=== PATIENT | male | born 1950 | race African-American/Black ===

== ENCOUNTER → 2017-05-07 | Outpatient (CLI) | payer OTHER | END | disposition home or self-care (01) | LOC: C.PATHSPEC 15:55 | PROVIDERS: ATTEND Urology | DX: R97.20 Elevated prostate specific antigen [PSA] (principal); N41.4 Granulomatous prostatitis ==

== ENCOUNTER 2018-06-01 05:37 | Inpatient (IN) ==
--- NOTE | 2018-05-27 08:31 | Anesthesiology Consultation ---
Date of Service May 27, 2018 Assessment & Plan (1) Encounter for pre-operative examination: Chart Review Chart Review: Acceptable Risk for Surgery and Patient NOT seen in Pre Admission Testing History Surgery Operation Date: 06/01/18 07:30 Proposed Procedures p Right Robotic Assisted Thoracoscopic Surgery, Right Upper Lobectomy with Chest Wall Resection, Possible Sleeve Resection and Mediastinal Lymphadenectomy - Norman Gonzales MD, FACS Height/Weight Height: 6 ft Weight: 65.317 kg Allergies Allergy/AdvReac Type Severity Reaction Status Date / Time No Known Allergies Allergy Verified 05/26/18 15:43 Medications Home Medications Medication Instructions Recorded Confirmed Last Taken aspirin [Aspirin Low Dose] 81 mg PO QPM 05/05/18 05/26/18 05/18/18 finasteride 5 mg PO QPM 05/05/18 05/26/18 05/18/18 levalbuterol tartrate [Xopenex HFA] 2 inh INHALATION Q6H 05/05/18 05/26/18 Unknown lisinopril 20 mg PO QPM 05/05/18 05/26/18 05/18/18 tamsulosin 2 cap PO HS 05/05/18 05/26/18 05/19/18 montelukast 10 mg PO DAILY 05/26/18 05/26/18 Unknown Past Medical History Medical History Allergic rhinitis Cancer LUNG CANCER Chronic pain GERD (gastroesophageal reflux disease) Hyperlipemia Hypertension Malignant neoplasm RUL BRONCHUS SCC Past Surgical History Surgical History H/O kidney removal (Acute) DONATED TO SISTER (SIDE NOTE NOTED) History of bronchoscopy EBUS WITH BIOPSIES= 05/20/18= GRADE VIEW 2, MAC 3 (SEE ANESTHESIA RECORD FOR ETT DETAILS) Social History Smoking Status: Unknown if ever smoked Testing Electrocardiogram Date: 05/12/18 Findings: + NSR @ (87) Chest X-Ray Date: 05/20/18 Atherosclerosis of the aortic arch. Complete opacification of the right upper lobe at the site of the known mass. No pneumothorax or pleural effusion. Laboratory Results 05/10/18 WBC 8.75 H/H 11.4/36.2 PLATELETS 363 SODIUM 141 POTASSIUM 4.6 CHLORIDE 101 CO2 26 BUN 15 CREATININE 1.01 GLUCOSE 78
[2018-06-01] MEDS ORDERED: LR 15ML/HR IV SCH (06:00)
[2018-06-01] MEDS ORDERED: PHENYLEPHRINE HCL 10 MG/ML VIAL ONE ×3 (06:46→11:57)
[2018-06-01] MEDS ORDERED: ONDANSETRON INJ 2 MG/ML 2 ML VIAL ONE (06:46)
[2018-06-01] MEDS ORDERED: ROCURONIUM BROMIDE 10 MG/ML 5 ML VIAL ONE ×7 (06:46→11:34)
[2018-06-01] MEDS ORDERED: PROPOFOL IV EMULSION 10 MG/ML 20 ML VIAL IV ONE ×2 (06:46→16:30)
[2018-06-01] MEDS ORDERED: LIDOCAINE HCL 2% 2 ML VIAL/AMP(20MG/ML) INFIL ONE (06:46)
[2018-06-01] MEDS ORDERED: DEXAMETHASONE SOD INJ 4 MG/ML VIAL ONE (06:46)
[2018-06-01] MEDS ORDERED: fentaNYL citrate 100 MCG/2 ML VIAL ONE (06:46)
[2018-06-01] MEDS ORDERED: ALBUTEROL HFA INHALER 8.5 GM ONE (06:46)
[2018-06-01] MEDS ORDERED: MIDAZOLAM HCL 1 MG/ML 2ML VIAL ONE ×2 (06:46→16:19)
[2018-06-01] MEDS ORDERED: SODIUM CHLORIDE 0.9% PF 50 ML VIAL ONE (06:59)
[2018-06-01] MEDS ORDERED: BUPIVACAINE LIPOSOME 1.3% 266 MG/20 ML VIAL ONE (07:00)
[2018-06-01] MEDS ORDERED: BUPIVACAINE 0.5 % 5 MG/1 ML MPF 30ML VIAL ONE (07:00)
--- NOTE | 2018-06-01 07:04 | History & Physical Bridge Note ---
Date of Service June 01, 2018 History & Physical Bridge Note I have examined the patient, reviewed the History & Physical and in the interval since the performance of the History & Physical I have noted the following changes of clinical significance: no changes noted
[2018-06-01] MEDS ORDERED: HYDROmorphone INJ 2 MG/ML SYR/VIAL ONE (08:25)
[2018-06-01] MEDS ORDERED: CEFAZOLIN 250 MG/ML 1 GM VIAL ONE (08:25)
[2018-06-01] MEDS ORDERED: fentaNYL citrate 100 MCG/2 ML VIAL IV PRN ×2 (08:45→16:16)
[2018-06-01] MEDS ORDERED: ATROPINE SULFATE 0.1 MG/ML 10ML SYR IV PRN (08:45)
[2018-06-01] MEDS ORDERED: HYDROmorphone INJ 1 MG/ML SYRINGE IV PRN (08:45)
[2018-06-01] MEDS ORDERED: ePHEDrine sulfate 50 MG/ML AMP IV PRN (08:45)
[2018-06-01] MEDS ORDERED: CEFAZOLIN 1000MG 1,000 MG/7.5 ML SYR IV ONE (08:50)
[2018-06-01] MEDS ORDERED: ALBUMIN HUMAN 5% 12.5 GM/250 ML VIAL IV ONE (09:31)
[2018-06-01] MEDS ORDERED: SURGICEL ABSORB HEMOSTAT 2IN X 14IN TOP ONE (11:25)
[2018-06-01] MEDS ORDERED: CEFAZOLIN 1000MG 1,000 MG/7.5 ML SYR IV STA (13:42)
[2018-06-01 13:56] LABS: iSTAT Creatinine 0.9 mg/dl (0.6-1.3); iSTAT Hemoglobin 8.8 g/dl (14.0-18.0); iSTAT Ionized Calcium 1.21 mmol/l (1.12-1.32); iSTAT Potassium 4.8 mEq/L (3.3-5.0)
[2018-06-01] MEDS ORDERED: TISSEEL FIBRIN SEALANT 10ML TOP ONE (14:47)
[2018-06-01] MEDS ORDERED: GLYCOPYRROLATE 0.2 MG/ML VIAL ONE (14:55)
[2018-06-01] MEDS ORDERED: NEOSTIGMINE METHYLSULFATE 5 MG/5 ML SYR ONE (14:55)
--- NOTE | 2018-06-01 15:04 | Post Operative Brief Note ---
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 Madison RN, without difficulty, balderas demonstrates clear yellow urine. Output measured and recorded by anesthesia.)
[2018-06-01] MEDS ORDERED: METOCLOPRAMIDE HCL INJ 5 MG/ML 2 ML VIAL IV ONE (15:40)
[2018-06-01] MEDS ORDERED: MIDAZOLAM HCL 1 MG/ML 2ML VIAL IV PRN (16:16)
[2018-06-01] MEDS ORDERED: ONDANSETRON INJ 2 MG/ML 2 ML VIAL IV PRN (16:42)
[2018-06-01] MEDS ORDERED: D5W AND 1/2NSS 1,000 ML IV SCH (16:42)
[2018-06-01] MEDS ORDERED: OXYCODONE HCL IR 5 MG TAB (IMMEDIATE RELEASE) PO PRN (16:42)
[2018-06-01] MEDS ORDERED: MoRPHine SULFATE 2 MG/ML CARP IV PRN (16:42)
--- NOTE | 2018-06-01 16:44 | XRay Report ---
XR chest 1V portable HISTORY: right pneumonectomy COMPARISON: Chest 05/20/2018. FINDINGS: The endotracheal tube terminates 7 cm from the bishop. This could be advanced by 3 to 4 cm. There is a gas-filled mildly expanded right hemithorax due to the recent pneumonectomy. A right eigh th rib fracture. This favors post thoracotomy changes. The heart is normal in size. The left lung is essentially clear. Right chest wall subcutaneous emphysema likely due to the postoperative change. Th ere is mild left mediastinal shift. The right hemithorax is hyperexpanded. IMPRESSION: A gas-filled mildly expanded right hemithorax status post pneumonectomy. This results in mild left me diastinal shift. Clinical correlation and follow-up recommended to exclude the possibility of develop ing tension within the right hemithorax. Endotracheal tube terminates 7 cm from the bishop. This find ing was called/faxed to the patient's nurse following dictation. Electronically signed by: Aamir Odell M.D. 06/01/2018 5:44 PM
[2018-06-01 16:49] LABS: iSTAT Creatinine 0.9 mg/dl (0.6-1.3); iSTAT Hemoglobin 8.8 g/dl (14.0-18.0); iSTAT Ionized Calcium 1.18 mmol/l (1.12-1.32); iSTAT Potassium 5.3 mEq/L (3.3-5.0)
--- NOTE | 2018-06-01 16:52 | Anesthesiology Progress Note ---
Date of Service June 01, 2018 Anesthesia Post Procedure Vital Signs Vital Signs: Temp Pulse Resp BP Pulse Ox 06/01/18 16:35 36.3 C L 77 16 113/66 100 06/01/18 16:20 36.3 C L 76 16 102/66 99 06/01/18 16:10 35 C L 78 16 103/61 99 06/01/18 16:05 34.4 C L 75 16 102/62 100 06/01/18 06:04 36.3 C L 81 16 114/76 100 Notes Mental Status: see notes below Patient Amnestic to Procedure: Yes Nausea / Vomiting: adequately controlled Pain: adequately controlled Airway Patency, RR, SpO2: stable & adequate BP & HR: stable & adequate Hydration State: stable & adequate Anesthetic Complications: no major complications apparent Notes: Pt had right thoracoscopy, pneumonectomy under GA. Not reversed at end. Transported to SICU with ETT in place, manual respiration with 100% O2 by Ambu- bag. EKG, SaO2, IBP monitored and stable during transport and on arrival in SICU. Report given to ICU staff and Dr. Bell. For supportive care, observation and weaning as tolerated as per per surgeon and registered sales assistant.
--- NOTE | 2018-06-01 17:13 | Critical Care Consultation ---
Date of Consultation June 01, 2018 Assessment & Plan (1) S/P pneumonectomy: Reason Critically Ill: 67-year-old male with past medical history of non- small cell carcinoma and right upper lobe now status post total right pneumonectomy. Left intubated after procedure for concern for paralytics still on board, will wean from ventilator once paralytics wear off. Neuro - [facility] ICU: Unable to assess secondary to paralytics/sedation Cardiac - Hypertensionlikely secondary to donor nephrectomy -Continue lisinopril when appropriate Respiratory - Non-small cell lung cancerstatus post total right pneumonectomy -Currently intubated, will wean ADRYAN once paralytics no longer on board from surgery -We will maintain low PEEP and tidal volumes -Will refer to primary team for management GI - No indication for PPI at this time RENAL/LYTES - Nephrectomydonor to sister -BUN/creatinine stable -Monitor routine BMPs - Foleystrict I's and O's BPHcontinue tamsulosin and finasteride when appropriate ENDO - ICU hyperglycemic protocol HEME - Acute blood loss anemiaEBL 600 with surgery -Hesitant to transfuse at this time due to risk for pulmonary edema post pneumectomy -We will monitor with routine CBCs, hemoglobin transfusion threshold for less than 7 ID - Cefazolin LINES/IV ACCESS - Peripheral IVs, ETT, Marquez, Syl DVT PROPHYLAXIS - SCDs, anticoagulation to be managed by primary team following surgery (2) Lung cancer, upper lobe: (3) Hypertension after donor nephrectomy requiring medication: (4) Benign prostate hyperplasia: Supervising Physician Co-Signing Physician Notes Acute postoperative respiratory insufficiency after right total pneumonectomy for squamous cell lung cancer. Patient still under the influence of neuromuscular blockade will allow the patient to gently metabolize neuromuscular blockade and then should hopefully extubate this evening. I have personally spent 70 minutes of critical care time in the direct management of this patient. This is a life/limb threatening event. This includes time spent evaluating patient, direct bedside care, chart review, placing orders, interpretation of diagnostic studies, discussion with consultants, patient, and/or family members regarding treatment decisions, as well as other required patient management activities. This time is exclusive of all separately billable procedures, and teaching time and separate from and in addition to any other critical care service time. History of Present Illness Attending Physician: Norman Gonzales MD, FACS History of Present Illness 67-year-old male from [facility] with past medical history of non-small cell lung cancer in right upper lobe, hypertension, kidney removal (donor to sister) that presents postop for total right pneumonectomy. Plan was for patient to be extubated in PACU, however there was concern for paralytic's still being on board postoperatively so the patient was left intubated and transferred to ICU for ventilator management and weaning. Will use sedation and wean ventilator once paralytics have worn off. Allergies Allergy/AdvReac Type Severity Reaction Status Date / Time No Known Allergies Allergy Verified 06/01/18 05:56 Home Medications Home Medications Medication Instructions Recorded Confirmed Type aspirin [Aspirin Low Dose] 81 mg PO QPM 05/05/18 06/01/18 History finasteride 5 mg PO QPM 05/05/18 05/26/18 History levalbuterol tartrate [Xopenex HFA] 2 inh INHALATION Q6H 05/05/18 06/01/18 History lisinopril 20 mg PO QPM 05/05/18 06/01/18 History tamsulosin 2 cap PO HS 05/05/18 05/26/18 History montelukast 10 mg PO DAILY 05/26/18 06/01/18 History Patient History Social History Preferred Language: Slovak Wheel And Axle Inspector Required: No Beliefs That Will Affect Care: None Current Living Situation: Other Current Living Situation Comment: [facility] Smoking Status: Unknown if ever smoked Review of Systems Unable to obtain 12 system ROS secondary to patient being paralyzed, sedated, and intubated. See HPI Physical Exam Vital Signs (Past 24 Hours): Last Vital Signs Temp 36.4 C L 06/01/18 17:02 Pulse 74 06/01/18 17:02 Resp 16 06/01/18 17:02 BP 98/59 L 06/01/18 17:02 Pulse Ox 100 06/01/18 17:02 Constitutional: Intubated and sedated Eyes: PERRLA Neck: trachea midline, no thyromegaly Respiratory: Absent breath sounds in right lung field, clear to auscultation in left upper and lower lobes. Cardiovascular: RRR, no murmur, no edema Heart Sounds: normal S1 and normal S2 No JVD no edema Gastrointestinal (Abdomen): normal bowel sounds, soft, nontender, no hepatosplenomegaly Neurologic: Intubated and sedated and medically paralyzed, PERRLA Genitourinary: Marquez, adequate urine output Results & Data Laboratory Results Laboratory Results - last 24 hr 06/01/18 06/01/18 06/01/18 06:01 13:35 15:49 POC Hgb 8.8 L 8.8 L POC Hct 26 L 26 L POC Sodium 138 138 POC Potassium 4.8 5.3 H POC Chloride 105 105 POC Total CO2 27 26 POC Anion Gap 12.0 L 14.0 L POC BUN 17 18 POC Creatinine 0.9 0.9 POC Glucose (other) 202 H 220 H POC Ioniz Calcium Imkal 1.21 1.18 Blood Type O Positive Antibody Screen NEGATIVE Crossmatch See Detail Medications Administered Home Medications aspirin [Aspirin Low Dose] 81 mg PO QPM 05/05/18 [History Confirmed 06/01/18] finasteride 5 mg PO QPM 05/05/18 [History Confirmed 05/26/18] levalbuterol tartrate [Xopenex HFA] 2 inh INHALATION Q6H 05/05/18 [History Confirmed 06/01/18] lisinopril 20 mg PO QPM 05/05/18 [History Confirmed 06/01/18] tamsulosin 2 cap PO HS 05/05/18 [History Confirmed 05/26/18] montelukast 10 mg PO DAILY 05/26/18 [History Confirmed 06/01/18] Active Medications Aspirin (Ecotrin Ectab) 81 mg PO QPM [facility] Stop: 07/01/18 20:59 Docusate Sodium (Colace) 100 mg PO BID [facility] Stop: 07/01/18 20:59 Enoxaparin Sodium (Lovenox) 40 mg SQ QAM [facility] Stop: 07/02/18 08:59 Fentanyl Citrate (Fentanyl Citrate) 50 mcg IV Q2H PRN PRN Reason: Moderate Pain (4,5,6) Stop: 06/15/18 16:15 Finasteride (Proscar) 5 mg PO QPM [facility] Stop: 07/01/18 20:59 Lactated Ringer's (Lr) 1,000 mls @ 15 mls/hr IV .Q24H [facility] Stop: 06/02/18 05:59 Last Infusion: 06/01/18 07:33 Dose: Infused Documented by: Dextrose/Sodium Chloride (D5w And 1/2nss) 1,000 mls @ 60 mls/hr IV .[id number] [facility] Stop: 07/01/18 16:41 Last Admin: 06/01/18 17:17 Dose: 60 mls/hr Documented by: Acetaminophen (Ofirmev) 1,000 mg in 100 mls @ 400 mls/hr IV Q8H [facility] Stop: 07/01/18 17:59 Levalbuterol HCl (Xopenex Hfa) 2 puffs INH Q6H [facility] Stop: 07/01/18 16:41 Lisinopril (Zestril) 20 mg PO QPM [facility] Stop: 07/01/18 20:59 Metoclopramide HCl (Reglan) 10 mg IV Q8H [facility] Stop: 06/02/18 09:31 Midazolam HCl (Versed) 2 mg IV Q2H PRN PRN Reason: agitation/anxiety Stop: 07/01/18 16:15 Montelukast Sodium (Singulair) 10 mg PO DAILY [facility] Stop: 07/02/18 08:59 Morphine Sulfate (Morphine Sulfate) 1 - 2 mg IV Q1H PRN PRN Reason: Pain Stop: 06/15/18 16:41 Ondansetron HCl (Zofran) 4 mg IV Q4H PRN PRN Reason: Nausea And Vomiting Stop: 07/01/18 16:41 Oxycodone HCl (Roxicodone Immediate Rel) 5 mg PO Q6H PRN PRN Reason: Pain Stop: 06/15/18 16:41 Tamsulosin HCl (Flomax) 0.8 mg PO HS [facility] Stop: 07/01/18 20:59
[2018-06-01] MEDS: METOCLOPRAMIDE HCL INJ 5 MG/ML 2 ML VIAL IV SCH (17:22)
[2018-06-01] MEDS: ACETAMINOPHEN 1,000 MG/100 ML VIAL IV SCH (17:30)
[2018-06-01 18:01] LABS: Basophils # (auto) 0.01 K/uL (0-0.2); Eosinophils # (auto) 0.01 K/uL (0-0.5); Hematocrit (blood only) 28.9 % (42-52); Hemoglobin 8.6 g/dL (14.0-18.0); Immature Granulocytes # (auto) 0.08 K/uL (0.00-0.02); Immature Granulocytes % (auto) 0.4 %; Lymphocytes # (auto) 0.41 K/uL (1.2-3.4); Mean Corpuscular Hgb Conc 29.8 g/dL (32-36); Mean Corpuscular Volume 84.5 fL (80-100); Mean Platelet Volume 8.5 fL (7.4-10.4); Monocytes % (auto) 4.9 %; Neutrophils # (auto) 18.78 K/uL (1.4-6.5); Neutrophils % (auto) 92.7 %; Platelet Count 290 K/uL (130-400); RDW Coefficient of Variation 14.9 % (11.5-14.5); Red Blood Count 3.42 M/uL (4.7-6.1); White Blood Count 20.29 K/uL (4.8-10.8)
[2018-06-01 18:12] LABS: INR 1.2 (0.9-1.1)
[2018-06-01 18:23] LABS: BUN Creatinine Ratio 16.4 (10-20); Calcium 7.9 mg/dl (8.5-10.1); Creatinine Clr Calc Pharmacy 52.2 ml/min; Est GFR (African American) 72.8; Est GFR (Non-African American) 62.8; Potassium 6.3 mmol/L (3.5-5.1)
[2018-06-01 19:05] LABS: Echinocytes 1+
[2018-06-01] MEDS ORDERED: NovoLIN-R INSULIN PER UNIT CHARGE IV STA (19:46)
[2018-06-01] MEDS ORDERED: DEXTROSE 50% 50 ML SYRINGE IV ONE (19:46)
[2018-06-01] MEDS ORDERED: DEXTROSE 50% 50 ML SYRINGE IV SCH ×2 (20:15)
[2018-06-01] MEDS ORDERED: INSULIN HUMAN REGULAR PER UNIT 10 UNITS in SYRINGE 9.9 ML IV SCH (20:15)
[2018-06-01] MEDS ORDERED: CALCIUM GLUCONATE 10% 1,000 MG in SODIUM CHLORIDE 0.9% 50 ML IV ONE (20:15)
[2018-06-01] MEDS: DOCUSATE SODIUM 100 MG CAP PO SCH (21:27)
[2018-06-01] MEDS: ASPIRIN 81 MG ECTAB PO SCH (21:27)
[2018-06-01] MEDS: FINASTERIDE 5 MG TAB PO SCH (21:28)
[2018-06-01] MEDS: TAMSULOSIN HCL 0.4 MG CAP PO SCH (21:28)
[2018-06-01] MEDS: LISINOPRIL 20 MG TAB PO SCH (21:28)
--- NOTE | 2018-06-01 23:18 | Operative Report ---
DATE OF OPERATION: 06/01/2018 PREOPERATIVE DIAGNOSIS: Squamous cell carcinoma right upper lobe with apparent chest wall involvement. POSTOPERATIVE DIAGNOSIS: Squamous cell carcinoma involving right hilum with no chest wall invasion. PROCEDURES: 1. Robot-assisted right thoracoscopy with hilar dissection. 2. Robot-assisted thoracoscopic right radical pneumonectomy. 3. Mediastinal lymphadenectomy. SURGEON: Norman Gonzales MD SUSHI CHEF: CHEYENNE Le INDICATIONS OF PROCEDURE AND FINDINGS: Mr. Romano 67-year-old inmate who has a history of cigarette smoking, although he quit in the past. The patient has presented with a persistent cough and was found to have squamous cell carcinoma in his right upper lobe. It is completely obstructing his right mainstem bronchus. I performed an endobronchial ultrasound, showed no evidence of lymphatic involvement and there did not appear his lymph nodes were involved on the PET scan. There was a complete collapse of the upper lobe. I felt that based on the bronchoscopy and the CT we would be able to get away with a sleeve resection and possible chest wall resection. I went back and I brought him to the operating room with the intention of doing a right upper lobectomy with probable sleeve resection and possible chest wall resection. Upon entering the patient's chest, he did not have chest wall invasion. The right upper lobe fell away from the chest wall with some dissection, but really did well with this. The mass was very large, however. I dissected out the fissure and it was extremely difficult to get down to the artery due to the tumor. I then realized this was crossing the fissure into the middle lobe. A frozen section of this area of the middle lobe showed NSCLC. I elected to proceed with a pneumonectomy as he would tolerate it. We did discuss this in the office. I proceeded with a pneumonectomy and he did well. He tolerated it well hemodynamically. DESCRIPTION OF PROCEDURE: The patient brought to the operating room and laid in the supine position. General anesthesia was induced and endotracheal intubation performed with double lumen tube. The patient was turned into left lateral decubitus position. Right chest prepped and draped in usual sterile fashion. Appropriate time out had been called. Antibiotics given. A camera port was placed just about the mid axillary line about the 8th rib. There were some adhesions, but really I was surprised at how well this looked. I then placed a two 8 mm ports, one in the right and one to the left and a 5 mm port posteriorly, all under thoracoscopic guidance. We then placed a 15 mm assist's port anteriorly just above the diaphragm between the anterior port and the camera port. We did start taking down the adhesions and we were looking at the fissures and the right upper lobe was completely consolidated which is not surprising. I went posteriorly and took down the inferior pulmonary ligament and then dissected out level VIII and level IX nodes. I came up and took a large amount of nodes from the level VII area and dissected out the right mainstem bronchus as well as the right upper lobe bronchus; however, the tumor was very close to the right upper lobe bronchus takeoff, which is not surprising. I then divided the azygos vein and dissect a level X nodes as well as level II nodes and level IV nodes. There were adhesions between the mass and pericardium. However, it is difficult to tell whether this was due to the inflammation as it appeared that was growing into the lower lobe and upper lobe but this fairly easily. I then the phrenic nerve, which was quite close and then I went into the pericardium to gain control of the artery and vein. The right middle lobe was involved in this process proximally. I sent off for frozen section. It was definitely involved. The tumor was very large and I decided to proceed with a pneumonectomy. As we had opened the pericardium, it is fairly easy to get control of the veins. I started off by dividing these first. I divided the superior pulmonary vein and middle pulmonary vein and the intrapericardial portion of the inferior pulmonary vein. After we had dissected this out, this had freed up freed up things much nicer. I then pulled around and freed up the dissection posteriorly and then as we were in the pericardium and was quite easy to stapler across the main pulmonary artery, which we did. This freed up things nicely and we dissected out the rest of the bronchus and then fired and an Endo-OCTAVIO stapler across the proximal right mainstem bronchus. This freed up the tumor. I then fashioned a pleural flap based superiorly with a pedicle flap and I raised it bluntly and sharply and sutured it to the bronchus with 3-0 Vicryl suture. We had some oozing from the lung itself and the specimen. We lost about 600 mL of blood but he was hemodynamically stable. We had to create another port posteriorly between the camera port and the posterior port in order to fire the stapler the correct angle across the artery and the bronchus. It should be noted that in the beginning of the case, we mixed 266 mg of Exparel with 250 mL normal saline, 30 mL of 0.25% Marcaine and injected each of the port sites prior to entering the chest and then did a intercostal block from the 2nd to the 11th rib. We had to open the anterior incision in order to remove the lung with an Endobag. The cartilage . We repaired this with a 0 PDS. We then got meticulous control of bleeding. I then raised a pleural flap by raising the pleura up basing the pedicle superiorly and I was able to cover the entire bronchus with 3-0 Vicryl suture. We then irrigated out the chest and really there was no bleeding. We have done a very thorough lymph node dissection. I did use Tisseel, 10 mL was thawed and I sprayed it over the hilum. Each of the incisions then closed with 0 Vicryl and 4-0 Monocryl in running continuous fashion. We did not use chest tube. He tolerated it well, although he with a bit slow to recover from the anesthesia. He was transported to the ICU in stable condition. I attest to the content of the Intraoperative Record and any orders documented therein. Any exceptions are noted below. SHARDA
[2018-06-02 01:13] LABS: Hematocrit (blood only) 26.7 % (42-52); Hemoglobin 8.3 g/dL (14.0-18.0)
[2018-06-02 01:42] LABS: BUN Creatinine Ratio 17.6 (10-20); Calcium 8.1 mg/dl (8.5-10.1); Creatinine Clr Calc Pharmacy 49.7 ml/min; Est GFR (African American) 68.6; Est GFR (Non-African American) 59.2; Magnesium 2.1 mg/dl (1.8-2.4); Potassium 4.9 mmol/L (3.5-5.1)
[2018-06-02 01:56] LABS: Phosphorus 3.2 mg/dl (2.5-4.9); Troponin I 0.081 ng/ml (0-0.045)
[2018-06-02] MEDS: LEVALBUTEROL TARTRATE 15 GM HFA.AER.AD INH SCH ×4 (02:46→11:23)
[2018-06-02] MEDS: ACETAMINOPHEN 1,000 MG/100 ML VIAL IV SCH (03:00)
[2018-06-02] MEDS: METOCLOPRAMIDE HCL INJ 5 MG/ML 2 ML VIAL IV SCH ×2 (03:01→07:55)
[2018-06-02 06:15] LABS: Hematocrit (blood only) 26.1 % (42-52); Hemoglobin 8.1 g/dL (14.0-18.0); Immature Granulocytes # (auto) 0.04 K/uL (0.00-0.02); Immature Granulocytes % (auto) 0.2 %; Lymphocytes # (auto) 1.08 K/uL (1.2-3.4); Lymphocytes % (auto) 6.4 %; Mean Corpuscular Volume 81.6 fL (80-100); Monocytes # (auto) 0.99 K/uL (0.11-0.59); Monocytes % (auto) 5.8 %; Neutrophils # (auto) 14.82 K/uL (1.4-6.5); Neutrophils % (auto) 87.6 %; Platelet Count 273 K/uL (130-400); RDW Coefficient of Variation 14.5 % (11.5-14.5); RDW Standard Deviation 43.9 fL (36.4-46.3); White Blood Count 16.93 K/uL (4.8-10.8)
[2018-06-02 06:50] LABS: RBC Morphology Unremarkable
[2018-06-02 06:52] LABS: BUN Creatinine Ratio 19.6 (10-20); Est GFR (African American) 75.9; Est GFR (Non-African American) 65.5; Potassium 4.8 mmol/L (3.5-5.1)
[2018-06-02 07:10] LABS: Phosphorus 3.5 mg/dl (2.5-4.9); Troponin I 0.133 ng/ml (0-0.045)
--- NOTE | 2018-06-02 07:10 | XRay Report ---
XR chest 1V portable HISTORY: right pneumonectomy COMPARISON: Chest 06/01/2018. FINDINGS: The patient has been extubated. Gas-filled right hemithorax persists. The expansion has res olved along with the midline shift. The patient is status post pneumonectomy. Right chest wall subcut aneous emphysema is again noted. Right posterior eighth rib fracture suggesting postoperative change. The left lung is now clear. The heart is normal in size. IMPRESSION: Status post right pneumonectomy. Decreased expansion of the right hemithorax with resolution of the m idline shift. Electronically signed by: Aamir Odell M.D. 06/02/2018 7:08 AM
[2018-06-02] MEDS: DOCUSATE SODIUM 100 MG CAP PO SCH ×2 (07:51→20:40)
[2018-06-02] MEDS: MONTELUKAST SODIUM 10 MG TABLET PO SCH (07:51)
[2018-06-02] MEDS: ENOXAPARIN INJ 40 MG/0.4 ML SYR SQ SCH (07:52)
--- NOTE | 2018-06-02 07:55 | Critical Care Progress Note ---
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 Left intubated after procedure for concern for paralytics still on board, extubated last night to nasal cannula. Neuro - [facility] ICU: Negative Pain: Tylenol, morphine, oxycodone Cardiac - Hypertensionlikely secondary to donor nephrectomy -Continue lisinopril Elevated troponinlikely secondary to cardiac shift and atrial irritation during procedure -Some ST elevation on EKG, unlikely true STEMI, no chest pain, no history of cardiac disease -Addition contraindicated due to total right pneumonectomy -Started on aspirin -Trending troponins and EKGs -We will monitor Respiratory - Non-small cell lung cancerstatus post total right pneumonectomy -Extubated last night to nasal cannula -Clear on chest x-ray this a.m. -PT OT ordered, patient ambulating -Limiting fluid intake due to risk for pulmonary edema -Continue Xopenex GI - No indication for PPI at this time RENAL/LYTES - Nephrectomydonor to sister -BUN/creatinine stable -Monitor routine BMPs - Foleystrict I's and O's BPHcontinue tamsulosin and finasteride when appropriate ENDO - ICU hyperglycemic protocol HEME - Acute blood loss anemiaEBL 600 with surgery -H&H stable, no indication for infusion -Monitor with routine CBCs ID - Cefazolin LINES/IV ACCESS - Peripheral IVs, Marquez DVT PROPHYLAXIS - SCDs, Lovenox (2) Lung cancer, upper lobe: (3) Hypertension after donor nephrectomy requiring medication: (4) Benign prostate hyperplasia: Supervising Physician Co-Signing Physician Notes I have personally evaluated and examined this patient. I agree with assessment and plan of Sae CHILD. Overnight patient had EKG changes and we have been trending troponins. There is no chest pain. We will continue to trend troponins to see them decrease. His EKG has appeared to return to baseline. I suspect these changes are dynamic given the recent pneumonectomy and anatomic changes in his physiology as well as stress on the right ventricle from the removal of the pulmonary vascular bed. Patient has been up ambulating and able to tolerate a diet he is stable for downgrade out of the ICU. Subjective 67-year-old male from [facility] with past medical history of non-small cell lung cancer in right upper lobe, hypertension, kidney removal (donor to sister) that presents postop for total right pneumonectomy. Plan was for patient to be extubated in PACU, however there was concern for paralytic's still being on board postoperatively so the patient was left intubated and transferred to ICU for ventilator management and weaning. Extubated overnight to nasal cannula. Currently hemodynamically stable, will continue to observe and monitor in the ICU for now. Possible transfer to telemetry this afternoon. Patient only complains of mild pain at surgical site mild shortness of breath with exertion. Review of Systems All systems reviewed & are unremarkable except as noted in HPI & below Physical Exam Vital Signs (Past 24 Hours): Last Vital Signs Temp 36.4 C L 06/02/18 04:00 Pulse 78 06/02/18 06:30 Resp 15 06/01/18 20:10 BP 104/68 06/02/18 06:00 Pulse Ox 99 06/02/18 06:30 Constitutional: Patient alert and oriented, appears comfortable, ambulating Eyes: PERRL, conjunctivae normal, anicteric sclerae Neck: trachea midline, no thyromegaly Respiratory: Lungs clear to auscultation lobes on left side, absent sounds on right Cardiovascular: RRR, no murmur, no edema Heart Sounds: normal S1 and normal S2 Gastrointestinal (Abdomen): normal bowel sounds, soft, nontender, no hepatosplenomegaly Neurologic: PERRL, EOMI, accommodation nl, no face palsy, no dysarthria Psychiatric: Orientation: alert and oriented x 3 Results & Data Laboratory Results Laboratory Results - last 24 hr 06/01/18 06/01/18 06/01/18 15:49 16:10 17:50 WBC RBC Hgb POC Hgb 8.8 L Hct POC Hct 26 L MCV MCH MCHC RDW Std Deviation RDW Coeff of Jude Plt Count MPV Immature Gran % (Auto) Neut % (Auto) Lymph % (Auto) Alcorn % (Auto) Eos % (Auto) Baso % (Auto) Immature Gran # (Auto) Neut # (Auto) Lymph # (Auto) Alcorn # (Auto) Eos # (Auto) Baso # (Auto) RBC Morphology Echinocytes PT 12.0 INR 1.2 H POC Sodium 138 Sodium POC Potassium 5.3 H Potassium POC Chloride 105 Chloride Carbon Dioxide POC Total CO2 26 Anion Gap POC Anion Gap 14.0 L POC BUN 18 BUN Creatinine POC Creatinine 0.9 Est Cr Clr Drug Dosing Est GFR ( Amer) Est GFR (Non-Af Amer) BUN/Creatinine Ratio Glucose POC Glucose POC Glucose (other) 220 H Calcium POC Ioniz Calcium Mikal 1.18 Phosphorus Magnesium Total Creatine Kinase Troponin I Nasal Screen MRSA (PCR) Negative 06/01/18 06/01/18 06/01/18 17:50 17:50 19:12 WBC 20.29 H RBC 3.42 L Hgb 8.6 L POC Hgb Hct 28.9 L POC Hct MCV 84.5 MCH 25.1 MCHC 29.8 L RDW Std Deviation 46.0 RDW Coeff of Jude 14.9 H Plt Count 290 MPV 8.5 Immature Gran % (Auto) 0.4 Neut % (Auto) 92.7 Lymph % (Auto) 2.0 Alcorn % (Auto) 4.9 Eos % (Auto) 0.0 Baso % (Auto) 0.0 Immature Gran # (Auto) 0.08 H Neut # (Auto) 18.78 H Lymph # (Auto) 0.41 L Alcorn # (Auto) 1.00 H Eos # (Auto) 0.01 Baso # (Auto) 0.01 RBC Morphology Echinocytes 1+ PT INR POC Sodium Sodium 137 POC Potassium Potassium 6.3 H* 6.3 H* POC Chloride Chloride 108 H Carbon Dioxide 23 POC Total CO2 Anion Gap 6.0 POC Anion Gap POC BUN BUN 20 H Creatinine 1.19 POC Creatinine Est Cr Clr Drug Dosing 52.2 Est GFR ( Amer) 72.8 Est GFR (Non-Af Amer) 62.8 BUN/Creatinine Ratio 16.4 Glucose 243 H POC Glucose POC Glucose (other) Calcium 7.9 L POC Ioniz Calcium Mikal Phosphorus Magnesium Total Creatine Kinase Troponin I Nasal Screen MRSA (PCR) 06/01/18 06/02/18 06/02/18 20:43 00:04 00:53 WBC RBC Hgb POC Hgb Hct POC Hct MCV MCH MCHC RDW Std Deviation RDW Coeff of Jude Plt Count MPV Immature Gran % (Auto) Neut % (Auto) Lymph % (Auto) Alcorn % (Auto) Eos % (Auto) Baso % (Auto) Immature Gran # (Auto) Neut # (Auto) Lymph # (Auto) Alcorn # (Auto) Eos # (Auto) Baso # (Auto) RBC Morphology Echinocytes PT INR POC Sodium Sodium 138 POC Potassium Potassium 4.9 D POC Chloride Chloride 108 H Carbon Dioxide 24 POC Total CO2 Anion Gap 6.0 POC Anion Gap POC BUN BUN 22 H Creatinine 1.25 POC Creatinine Est Cr Clr Drug Dosing 49.7 Est GFR ( Amer) 68.6 Est GFR (Non-Af Amer) 59.2 BUN/Creatinine Ratio 17.6 Glucose 150 H POC Glucose 236 H 166 H POC Glucose (other) Calcium 8.1 L POC Ioniz Calcium Mikal Phosphorus 3.2 Magnesium 2.1 Total Creatine Kinase 2005 H Troponin I 0.081 H* Nasal Screen MRSA (PCR) 06/02/18 06/02/18 06/02/18 00:53 05:51 05:51 WBC 16.93 H RBC 3.20 L Hgb 8.3 L 8.1 L POC Hgb Hct 26.7 L 26.1 L POC Hct MCV 81.6 MCH 25.3 MCHC 31.0 L RDW Std Deviation 43.9 RDW Coeff of Jude 14.5 Plt Count 273 MPV 9.0 Immature Gran % (Auto) 0.2 Neut % (Auto) 87.6 Lymph % (Auto) 6.4 Alcorn % (Auto) 5.8 Eos % (Auto) 0.0 Baso % (Auto) 0.0 Immature Gran # (Auto) 0.04 H Neut # (Auto) 14.82 H Lymph # (Auto) 1.08 L Alcorn # (Auto) 0.99 H Eos # (Auto) 0.00 Baso # (Auto) 0.00 RBC Morphology Unremarkable Echinocytes PT INR POC Sodium Sodium 139 POC Potassium Potassium 4.8 POC Chloride Chloride 110 H Carbon Dioxide 26 POC Total CO2 Anion Gap 3.0 POC Anion Gap POC BUN BUN 23 H Creatinine 1.15 POC Creatinine Est Cr Clr Drug Dosing 54.0 Est GFR ( Amer) 75.9 Est GFR (Non-Af Amer) 65.5 BUN/Creatinine Ratio 19.6 Glucose 114 H POC Glucose POC Glucose (other) Calcium 8.0 L POC Ioniz Calcium Mikal Phosphorus 3.5 Magnesium 2.0 Total Creatine Kinase 2735 H Troponin I 0.133 H* Nasal Screen MRSA (PCR) 06/02/18 10:32 WBC RBC Hgb POC Hgb Hct POC Hct MCV MCH MCHC RDW Std Deviation RDW Coeff of Jude Plt Count MPV Immature Gran % (Auto) Neut % (Auto) Lymph % (Auto) Alcorn % (Auto) Eos % (Auto) Baso % (Auto) Immature Gran # (Auto) Neut # (Auto) Lymph # (Auto) Alcorn # (Auto) Eos # (Auto) Baso # (Auto) RBC Morphology Echinocytes PT INR POC Sodium Sodium POC Potassium Potassium POC Chloride Chloride Carbon Dioxide POC Total CO2 Anion Gap POC Anion Gap POC BUN BUN Creatinine POC Creatinine Est Cr Clr Drug Dosing Est GFR ( Amer) Est GFR (Non-Af Amer) BUN/Creatinine Ratio Glucose POC Glucose POC Glucose (other) Calcium POC Ioniz Calcium Mikal Phosphorus Magnesium Total Creatine Kinase Troponin I 0.122 H* Nasal Screen MRSA (PCR) Medications Administered Home Medications aspirin [Aspirin Low Dose] 81 mg PO QPM 05/05/18 [History Confirmed 06/01/18] finasteride 5 mg PO QPM 05/05/18 [History Confirmed 05/26/18] levalbuterol tartrate [Xopenex HFA] 2 inh INHALATION Q6H 05/05/18 [History Confirmed 06/01/18] lisinopril 20 mg PO QPM 05/05/18 [History Confirmed 06/01/18] tamsulosin 2 cap PO HS 05/05/18 [History Confirmed 05/26/18] montelukast 10 mg PO DAILY 05/26/18 [History Confirmed 06/01/18] Active Medications Acetaminophen (Tylenol) 650 mg PO Q6H [facility] Stop: 07/02/18 08:59 Last Admin: 06/02/18 14:45 Dose: 650 mg Documented by: Aspirin (Ecotrin Ectab) 81 mg PO QPM [place] Stop: 07/01/18 20:59 Last Admin: 06/01/18 21:27 Dose: Not Given Documented by: Docusate Sodium (Colace) 100 mg PO BID [place] Stop: 07/01/18 20:59 Last Admin: 06/02/18 07:51 Dose: 100 mg Documented by: Enoxaparin Sodium (Lovenox) 40 mg SQ QAM [place] Stop: 07/02/18 08:59 Last Admin: 06/02/18 07:52 Dose: 40 mg Documented by: Finasteride (Proscar) 5 mg PO QPM [place] Stop: 07/01/18 20:59 Last Admin: 06/01/18 21:28 Dose: Not Given Documented by: Levalbuterol HCl (Xopenex Hfa) 2 puffs INH Q6 PRN PRN Reason: sob Stop: 07/02/18 11:59 Lisinopril (Zestril) 20 mg PO QPM [place] Stop: 07/01/18 20:59 Last Admin: 06/01/18 21:28 Dose: Not Given Documented by: Montelukast Sodium (Singulair) 10 mg PO DAILY [place] Stop: 07/02/18 08:59 Last Admin: 06/02/18 07:51 Dose: Not Given Documented by: Morphine Sulfate (Morphine Sulfate) 1 - 2 mg IV Q1H PRN PRN Reason: Pain Stop: 06/15/18 16:41 Ondansetron HCl (Zofran) 4 mg IV Q4H PRN PRN Reason: Nausea And Vomiting Stop: 07/01/18 16:41 Oxycodone HCl (Roxicodone Immediate Rel) 5 mg PO Q6H PRN PRN Reason: Pain Stop: 06/15/18 16:41 Tamsulosin HCl (Flomax) 0.8 mg PO HS [facility] Stop: 07/01/18 20:59 Last Admin: 06/01/18 21:28 Dose: Not Given Documented by:
--- NOTE | 2018-06-02 08:13 | Anesthesiology Progress Note ---
Date of Service June 02, 2018 Anesthesia Post Procedure Vital Signs Vital Signs: Temp Pulse Pulse Resp BP BP Pulse Ox 06/02/18 06:30 78 99 06/02/18 06:15 77 100 06/02/18 06:01 77 100 06/02/18 06:00 77 104/68 100 06/02/18 05:45 77 100 06/02/18 05:30 75 100 06/02/18 05:15 76 100 06/02/18 05:01 77 99 06/02/18 05:00 76 113/68 100 06/02/18 04:45 76 99 06/02/18 04:30 74 100 06/02/18 04:15 77 91 06/02/18 04:01 77 92 06/02/18 04:00 36.4 C L 77 114/67 91 06/02/18 03:45 77 92 06/02/18 03:30 78 92 06/02/18 03:15 82 94 06/02/18 03:01 77 100 06/02/18 03:00 79 120/73 100 06/02/18 02:45 79 100 06/02/18 02:30 78 97 06/02/18 02:15 81 99 06/02/18 02:01 79 100 06/02/18 02:00 80 117/68 100 06/02/18 01:45 81 100 06/02/18 01:30 78 100 06/02/18 01:15 78 100 06/02/18 01:01 77 100 06/02/18 01:00 77 118/73 100 06/02/18 00:30 76 100 06/02/18 00:01 76 100 06/02/18 00:00 36.4 C L 75 117/74 100 06/01/18 23:30 76 99 06/01/18 23:01 76 100 06/01/18 23:00 76 110/71 100 06/01/18 22:30 76 100 06/01/18 22:01 78 100 06/01/18 22:00 79 102/69 100 06/01/18 21:30 80 100 06/01/18 21:01 82 100 06/01/18 21:00 81 112/71 100 06/01/18 20:30 79 100 06/01/18 20:10 84 15 100 06/01/18 20:01 36.5 C 81 100 03/13/19 20:00 80 98/62 L 100 06/01/18 19:37 80 24 100 06/01/18 19:30 80 100 06/01/18 19:01 82 100 06/01/18 19:00 81 118/74 100 06/01/18 18:42 36.4 C L 81 21 124/75 98 06/01/18 18:02 20 06/01/18 17:44 78 16 100 06/01/18 17:42 78 16 122/69 98 06/01/18 17:02 36.4 C L 74 16 98/59 L 100 06/01/18 16:35 36.3 C L 77 16 113/66 100 06/01/18 16:25 77 16 107/67 100 06/01/18 16:20 36.3 C L 76 16 102/66 99 06/01/18 16:10 35 C L 78 16 103/61 99 06/01/18 16:05 34.4 C L 75 16 102/62 100 06/01/18 16:02 74 16 100 Notes Mental Status: alert / awake / arousable and participated in evaluation Nausea / Vomiting: adequately controlled Pain: adequately controlled Airway Patency, RR, SpO2: stable & adequate BP & HR: stable & adequate Hydration State: stable & adequate
[2018-06-02] MEDS: MAGNESIUM SULFATE / D5W 1 GM/100 ML BAG IV SCH ×2 (09:47→10:49)
[2018-06-02] MEDS: ACETAMINOPHEN 325 MG TAB PO SCH ×3 (09:47→20:42)
--- NOTE | 2018-06-02 10:19 | Progress Note ---
DATE: 06/02/2018 HISTORY OF PRESENT ILLNESS: Mr. Romano is seen today 1 day status post a robot-assisted right pneumonectomy. He was extubated a few hours after returning to the ICU. He has had a stable night. His pain has been well controlled with the Exparel block that we performed. He has a good cough this morning. He is on very little oxygen with good saturations. He has been tolerating liquids this morning. His left side is clear. He has decreased breath sounds in the right as would be expected. OBJECTIVE: Otherwise, he really has no significant physical findings. Dressings are dry. He has no peripheral edema. He has regular rate and rhythm of his heart rate in the 70s. LABORATORY DATA: On review of his data, his x-ray shows no fluid accumulation on the right. His left side appears clear. His white count this morning is 16,931 and his hemoglobin to 8.1. His sodium is 139, potassium of 4.8, chloride of 110, and his BUN and creatinine are 23 and 1.15 respectively. His magnesium was 2.0, but I did give him a couple more grams. He has had some ST changes, but no chest pain at all. His creatinine kinase is 2735 this morning which is not surprising. His troponins are a bit high, but of course we were in the pericardium and I am not too concerned about that as are 0.133. He is hemodynamically stable. ASSESSMENT AND PLAN: Postoperative day #1, status post robot-assisted thoracoscopic right pneumonectomy with mediastinal lymph node dissection. He appears to be stable today. It should be noted that I did bronchoscope him yesterday after the procedure just to look at his stump. This is with the pediatric scope that belongs to anesthesia. He had no blood or mucus in his airways and his right mainstem bronchus stump looked fine. I am quite pleased with him and I am going to keep him in the ICU to make sure he does not have any rhythm problems. I do not believe this patient has suffered from myocardial event.
[2018-06-02] MEDS ORDERED: LEVALBUTEROL TARTRATE 15 GM HFA.AER.AD INH SCH (12:00)
[2018-06-02] MEDS ORDERED: LEVALBUTEROL TARTRATE 15 GM HFA.AER.AD INH PRN (12:15)
[2018-06-02] MEDS ORDERED: DEXTROSE 50% 50 ML SYRINGE IV SCH (20:15)
[2018-06-02] MEDS: LISINOPRIL 20 MG TAB PO SCH (20:41)
[2018-06-02] MEDS: FINASTERIDE 5 MG TAB PO SCH (20:41)
[2018-06-02] MEDS: TAMSULOSIN HCL 0.4 MG CAP PO SCH (20:41)
[2018-06-02] MEDS: ASPIRIN 81 MG ECTAB PO SCH (20:42)
[2018-06-03] MEDS: ACETAMINOPHEN 325 MG TAB PO SCH ×4 (03:40→21:13)
[2018-06-03 06:31] LABS: BUN Creatinine Ratio 21.9 (10-20); Calcium 8.5 mg/dl (8.5-10.1); Creatinine Clr Calc Pharmacy 57.5 ml/min; Est GFR (African American) 81.9; Est GFR (Non-African American) 70.6; Magnesium 2.3 mg/dl (1.8-2.4); Potassium 4.7 mmol/L (3.5-5.1)
[2018-06-03 06:42] LABS: Basophils # (auto) 0.01 K/uL (0-0.2); Basophils % (auto) 0.1 %; Hematocrit (blood only) 28.3 % (42-52); Hemoglobin 9.1 g/dL (14.0-18.0); Immature Granulocytes # (auto) 0.06 K/uL (0.00-0.02); Immature Granulocytes % (auto) 0.3 %; Lymphocytes # (auto) 0.87 K/uL (1.2-3.4); Lymphocytes % (auto) 4.9 %; Mean Corpuscular Volume 79.9 fL (80-100); Mean Platelet Volume 9.1 fL (7.4-10.4); Monocytes # (auto) 1.01 K/uL (0.11-0.59); Monocytes % (auto) 5.7 %; Neutrophils # (auto) 15.86 K/uL (1.4-6.5); Platelet Count 290 K/uL (130-400); RDW Coefficient of Variation 14.7 % (11.5-14.5); RDW Standard Deviation 42.9 fL (36.4-46.3); Red Blood Count 3.54 M/uL (4.7-6.1); White Blood Count 17.81 K/uL (4.8-10.8)
[2018-06-03 06:44] LABS: Mean Corpuscular Hgb Conc 32.2 g/dL (32-36)
--- NOTE | 2018-06-03 07:36 | XRay Report ---
XR chest 1V portable CLINICAL HISTORY: right pneumonectomy COMPARISON STUDY: Chest radiograph June 02, 2018. FINDINGS: Gas filled right hemithorax persists. Right hemithorax following loss is now noted which is not unexpected. Subcutaneous gas within the right chest wall and neck is increased. Left lung is luke ar. There is no left pneumothorax. Rightward mediastinal shift is now noted. IMPRESSION: 1. Status post right pneumonectomy. Increasing right hemithorax volume loss which is not unexpected. 2. Increasing subcutaneous gas within the chest wall and neck. Electronically signed by: Jose Armando Carl M.D. 06/03/2018 7:35 AM
[2018-06-03] MEDS: ENOXAPARIN INJ 40 MG/0.4 ML SYR SQ SCH (08:16)
[2018-06-03] MEDS: DOCUSATE SODIUM 100 MG CAP PO SCH ×2 (08:17→21:13)
[2018-06-03] MEDS: MONTELUKAST SODIUM 10 MG TABLET PO SCH (08:17)
[2018-06-03] MEDS: ASPIRIN 81 MG ECTAB PO SCH (20:45)
[2018-06-03] MEDS: FINASTERIDE 5 MG TAB PO SCH (20:45)
[2018-06-03] MEDS: TAMSULOSIN HCL 0.4 MG CAP PO SCH (20:45)
[2018-06-03] MEDS: LISINOPRIL 20 MG TAB PO SCH (20:46)
--- NOTE | 2018-06-03 21:13 | Progress Note ---
DATE: 06/03/2018 HISTORY OF PRESENT ILLNESS: Mr. Romano is seen today 2 days status post a robot-assisted right pneumonectomy. I was reviewing his pathology today with Dr. Swan who is reviewing this specimen. The patient is stable. He is afebrile. He is on room air. He is able to ambulate in the hallway. His saturations are 97%. He is eating and drinking. His white count this morning is 17,810. He is not acidotic. His BUN and creatinine are 24 and 1.08. The chest x-ray this morning shows very slow filling of his right pneumonectomy space. He also has some subQ emphysema, but this is due to him coughing and irrigating to the subcutaneous tissues. ASSESSMENT AND PLAN: Postoperative day #2 status post robot-assisted thoracoscopic right radical pneumonectomy with mediastinal lymphadenectomy. I reviewed the final pathology with Dr. Swan. The patient had multiple lymph nodes removed and these were all negative for carcinoma. We had a discussion about whether our margins were negative. Our bronchial and vascular margins are uninvolved by carcinoma; however, there was some soft tissue at the margins which were involved. We did an anterior pericardial dissection and removed everything in the hilum. It is unclear to me whether we are dealing with positive margins that would require treatment. I think that certainly grossly we removed the entire tumor. I was happy to see it did not involve the pleura. It is of course concerning that the hilar soft tissues are involved. Again we were aggressive in removing all of this tissue. We will discuss him in our multidisciplinary cancer conference. SHARDA
[2018-06-04] MEDS: ACETAMINOPHEN 325 MG TAB PO SCH ×4 (03:26→21:18)
[2018-06-04] MEDS: MONTELUKAST SODIUM 10 MG TABLET PO SCH (07:53)
[2018-06-04] MEDS: DOCUSATE SODIUM 100 MG CAP PO SCH (07:53)
[2018-06-04] MEDS: ENOXAPARIN INJ 40 MG/0.4 ML SYR SQ SCH (07:53)
--- NOTE | 2018-06-04 13:06 | Progress Note ---
DATE: 06/04/2018 Mr. Romano is seen today and looks great. He is on room air. He is ambulating in the hallway. His saturations are 98%. His vital signs are stable. His rhythm has been stable. He does have the ST elevations, but this does not appear to be related to myocardial ischemia. His left lung sounds clear. He has no peripheral edema. He has very little in the way of pain. I am going to transfer him to the third floor. He no longer needs to be monitored or have any dressings. We are going to ambulate him and if things look good, I may [facility].
[2018-06-04] MEDS: ASPIRIN 81 MG ECTAB PO SCH (20:18)
[2018-06-04] MEDS: TAMSULOSIN HCL 0.4 MG CAP PO SCH (20:18)
[2018-06-04] MEDS: LISINOPRIL 20 MG TAB PO SCH (20:19)
[2018-06-04] MEDS: FINASTERIDE 5 MG TAB PO SCH (20:19)
[2018-06-05] MEDS: ACETAMINOPHEN 325 MG TAB PO SCH ×2 (04:03→08:51)
[2018-06-05] MEDS: ENOXAPARIN INJ 40 MG/0.4 ML SYR SQ SCH (08:50)
[2018-06-05] MEDS: MONTELUKAST SODIUM 10 MG TABLET PO SCH (08:50)
--- NOTE | 2018-06-06 05:36 | Discharge Summary ---
DISCHARGE DIAGNOSES: 1. Squamous cell carcinoma, right lung. 2. Anemia of blood loss. HOSPITAL COURSE: This is a 67-year-old inmate with a history of cigarette smoking, who was found to have squamous cell carcinoma in his right upper lobe. After workup, I concluded he would tolerate a lung resection and brought him to the operating room on 06/01/2018 and performed a robotic radical right pneumonectomy with a mediastinal lymph node dissection. I attempted to do a right upper lobectomy, but the tumor was too large. This intrapericardial pneumonectomy went very well. We lost about 600 mL of blood, but it was a very difficult case due to adhesions, but it was not going into the chest wall as we feared. In fact, it did not involve the visceral pleura microscopically. At any rate, he was ventilated for a couple of hours in the ICU and then extubated and moved to telemetry the following day. I thought he looked quite good. He was weaned to room air quite quickly. He is tolerating a healthy diet. He was ambulating in the hallway on room air and never dropped his saturations below 97%. Quite frankly, I was impressed with him. His incisions were clean. He required no dressings. We did not use a chest tube. I was quite pleased with his x-ray and his lab work. Hemoglobin was stable. He looked quite good and I felt that he could be discharged on postop day #4. We monitored him for 3 days. He never had any real ectopy. He was discharged back to the [facility] in [place] on postop day #4. I will see him in the office in a week to go over his final pathology. I am going to present him at our multidisciplinary cancer conference this Wednesday.
--- NOTE | 2018-06-09 10:31 | Coding Query ---
CODING QUERY To promote full compliance with coding requirements relating to patient care, provider participation is requested in all cases of pharmacy order entry technician uncertainty. Please assist us with the question(s) below: Coding Question(s): Patient with [facility] Lung - To OR for Rt Pneumonectomy via General Anesthesia. Vented briefly post OP in ICU due to paralytics /neuromuscular blocking agents still on board . Please check below the phrase below that describes the reason for Ventilation post procedure. Thanks for your help! [facility] Physician's Response(s): The effects of the neuromuscular block are considered a postop complication,resulting in postop ventilation in ICU ___X___ The effects of the neuromuscular block are an expected occurrence in the postoperative period Cannot Clinically correlate if the neuromuscular block is a complication or expected occurrence postop Other: Please document: Bimal, ICU observation after a pneumonectomy is our normal protocol. He was discharged on POD # 4, which is fantastic for a pneumonectomy. I would not call this a complication. Thanks, Dr Gonzales Principal Diagnosis: "that condition established after study, to be chiefly responsible for occasioning the admission of the patient to the hospital for care." Co-Existing Principal Diagnosis: "when two or more diagnoses equally meet the criteria for principal diagnosis as determined by the circumstances of admission, diagnostic work up, and/or therapy provided, and the Alphabetic Index, Tabular List, or another coding guideline does not provide sequencing direction, any one of the diagnoses may be sequenced first." "When the physician has documented what appears to be a current diagnosis in the body of the record, but has not included the diagnosis in the final diagnostic statement, the physician should be asked whether the diagnosis should be added." (Source Coding Clinic 2 QTR90. p3-4) SHARDA
== END 2018-06-05 14:13 | DRG 164 ==
LOC: ASU 05:37 → 1E 15:29 → 2S 06-02 15:08 → 3N 06-04 13:49